=== PATIENT | male | born 1950 | race Caucasian/White ===

== ENCOUNTER 2022-03-29 12:06 | Inpatient (IN) ==
[2022-03-29 13:03] LABS: Hematocrit 39 % (42-52); Hemoglobin 12.8 g/dL (14.0-18.0); Mean Corpuscular HGB Conc 33 g/dL (31-36); Mean Corpuscular Hemoglobin 28 pg (27-31); Mean Corpuscular Volume 85 fL (80-94); Mean Platelet Volume 8.3 fL (7.4-10.4); Platelet Count 154 10^3/uL (150-450); Red Blood Count 4.55 10^6 /uL (4.18-5.48); Red Cell Distribution Width 20 % (10-15); White Blood Count 4.5 10^3/uL (3.5-10.8)
[2022-03-29 14:06] LABS: Anisocytosis 1+
[2022-03-29 14:07] LABS: ABS Monocytes 0.5 10^3/ul (0-0.8); ABS Neutrophils 2.9 10^3/ul (1.5-7.7); Eosinophil % 0.6 %; Lymphocyte % 21.9 %; Nucleated Red Blood Cells % 0.1
[2022-03-29 14:14] LABS: Albumin 2.9 g/dL (3.2-5.2); Albumin/Globulin Ratio 1.1 (1-3); C Reactive Protein 43.7 mg/L (<8.01); Calcium 9.3 mg/dL (8.6-10.3); Globulin 2.7 g/dL (2-4); Potassium 4.7 mmol/L (3.5-5.0); Total Bilirubin 1.1 mg/dL (0.2-1.0); Total Protein 5.6 g/dL (6.4-8.9)
[2022-03-29] MEDS ORDERED: Lactated Ringers 1000 ml BAG 1,000 ML IV ONE (14:16)
[2022-03-29 14:24] LABS: Activated Partial Thrombo Time 29.3 seconds (26.0-38.0); High Sensitivity Troponin 1 Hr 66 pg/mL (<20); INR 1.28 (0.86-1.15)
[2022-03-29] MEDS ORDERED: Albumin Human 25% 25 GM/100 ML BTL IV ONE (15:39)
[2022-03-29] MEDS ORDERED: Dextrose 50% Syringe 50 ml 25 GM/50 ML SYRINGE IV PUSH PRN (18:21)
[2022-03-29] MEDS ORDERED: Octreotide Acetate 50 MCG/ML ML SUBCUT SCH (19:00)
[2022-03-29] MEDS ORDERED: Heparin 5000 UNITS/ML 1 mL VIAL SUBCUT SCH (22:00)
[2022-03-29] MEDS ORDERED: oxyCODONE/Acetamin 5/325 mg TAB PO ONE (23:34)
[2022-03-30 00:47] LABS: Urine Appearance Clear; Urine Bilirubin Negative (Negative); Urine Blood 1+ (Negative); Urine Color Yellow; Urine Glucose Negative (Negative); Urine Ketones Negative (Negative); Urine Nitrite Negative (Negative); Urine Protein Negative (Negative); Urine Specific Gravity 1.014 (1.002-1.030); Urine Urobilinogen Negative (Negative)
[2022-03-30 00:53] LABS: Urine Bacteria 1+ (Absent); Urine Red Blood Cell Trace(0-2/hpf) (Absent); Urine White Blood Cell Trace(0-5/hpf) (Absent)
[2022-03-30 05:34] LABS: ABS Lymphocytes 0.5 10^3/ul (1.0-4.8); ABS Monocytes 0.7 10^3/ul (0-0.8); Eosinophil % 0.7 %; Hematocrit 37 % (42-52); Hemoglobin 12.2 g/dL (14.0-18.0); Lymphocyte % 12.1 %; Mean Corpuscular HGB Conc 33 g/dL (31-36); Mean Corpuscular Hemoglobin 28 pg (27-31); Mean Corpuscular Volume 84 fL (80-94); Platelet Count 124 10^3/uL (150-450); Red Blood Count 4.43 10^6 /uL (4.18-5.48); Red Cell Distribution Width 20 % (10-15); White Blood Count 4.2 10^3/uL (3.5-10.8)
[2022-03-30 06:21] LABS: Albumin 2.7 g/dL (3.2-5.2); Albumin/Globulin Ratio 1.2 (1-3); Calcium 9.1 mg/dL (8.6-10.3); Globulin 2.2 g/dL (2-4); Potassium 4.6 mmol/L (3.5-5.0); Total Bilirubin 1.2 mg/dL (0.2-1.0); Total Protein 4.9 g/dL (6.4-8.9); eGFR CKD-EPI 9.3 (>60)
[2022-03-30 12:23] LABS: Hepatitis B Surface Antigen Nonreactive (Nonreactive)
[2022-03-30 12:40] LABS: Hepatitis B Surface Ab Not Immune (Immune)
[2022-03-30] MEDS ORDERED: Heparin 1,000 UNIT/ML 10 ml (10,000 UNITS) CATHLAB/DIALYSIS DIALYSIS PRN (14:03)
[2022-03-30] MEDS: Heparin 1,000 UNIT/ML 10 ml (10,000 UNITS) CATHLAB/DIALYSIS DIALYSIS PRN ×4 (14:30→18:05)
[2022-03-30] MEDS ORDERED: Ondansetron 4 mg VIAL 2 MG/ML 2 ml VIAL ONE (16:35)
[2022-03-30] MEDS ORDERED: Ondansetron 4 mg VIAL 2 MG/ML 2 ml VIAL IV PRN (16:48)
[2022-03-30] MEDS ORDERED: Polyethylene Glycol 3350 17 GM PACKET PO PRN (19:34)
[2022-03-30] MEDS ORDERED: Morphine 2 MG/ML SYRINGE IV PRN (19:34)
[2022-03-30] MEDS ORDERED: Scopolamine 1 mg/72hr PATCH TRANSDERM SCH (20:00)
[2022-03-30] MEDS ORDERED: Lorazepam PYXIS KEY PRN (20:04)
[2022-03-30] MEDS: Prochlorperazine 5 mg/ml 2 ml VIAL (10 mg) IV PRN (20:05)
[2022-03-30] MEDS ORDERED: Heparin 5000 UNITS/ML 1 mL VIAL SUBCUT SCH (21:00)
[2022-03-31] MEDS: LORazepam 2 mg VIAL 1 ml IV PUSH PRN (02:51)
[2022-03-31] MEDS: HYDROmorphone 0.5 MG/0.5 ML SYRINGE IV SLOW PU PRN ×3 (02:51→10:21)
[2022-03-31 07:14] VITALS: BP 100/49
[2022-03-31] MEDS ORDERED: Dextran 70/Hypromellose Tears Eye Drops 15 ml BTL (for Artificials Tears) BOTH EYES PRN (13:39)
[2022-04-01] MEDS: LORazepam 2 mg VIAL 1 ml IV PUSH PRN ×4 (00:14→19:52)
[2022-04-01] MEDS: Morphine ORAL CONCENTRATE 5 MG/0.25 ML ORAL.SYRIN SL PRN ×7 (00:14→22:19)
[2022-04-01] MEDS: Prochlorperazine 5 mg/ml 2 ml VIAL (10 mg) IV PRN (04:53)
[2022-04-02] MEDS: Morphine ORAL CONCENTRATE 5 MG/0.25 ML ORAL.SYRIN SL PRN ×3 (01:06→06:00)
[2022-04-02] MEDS: LORazepam 2 mg VIAL 1 ml IV PUSH PRN (01:07)
[2022-04-02] MEDS ORDERED: Atropine 1% (ORAL/SL) 15 ML BTL SL PRN (11:27)
[2022-04-02] MEDS ORDERED: Morphine ORAL CONCENTRATE 5 MG/0.25 ML ORAL.SYRIN SL PRN (11:29)
[2022-04-02] MEDS ORDERED: Morphine 2 MG/ML SYRINGE IV PRN (12:16)
[2022-04-02] MEDS ORDERED: Lorazepam PYXIS KEY PRN (12:20)
[2022-04-02] MEDS ORDERED: LORazepam 2 mg VIAL 1 ml IV PUSH PRN (12:20)
[2022-04-02] MEDS ORDERED: Glycopyrrolate IV 0.2 MG/ML 1 ML VIAL IV SLOW PU SCH (13:00)
[2022-04-02] MEDS ORDERED: Morphine 2 MG/ML SYRINGE IV SCH (14:00)
== END 2022-04-02 16:04 | disposition expired | DRG 435 ==
LOC: ED 12:06 → EDHOLD 18:17 → SUATTDRO 18:17 → MED 22:24
PROVIDERS: ADMIT Hospitalist; ATTEND Internal Medicine